=== PATIENT | male | born 1985 | race Caucasian/White ===

== ENCOUNTER 2023-04-17 11:09 | Day surgery (SDC) | payer BC ==
[2023-04-09 14:23] LABS: BASOPHILS # (AUTO) 0.1 X10'3 (0-0.2); BASOPHILS % (AUTO) 0.7 % (0-1); EOSINOPHILS # (AUTO) 0.3 X10'3 (0-0.9); EOSINOPHILS % (AUTO) 3.7 % (0-6); LYMPHOCYTES # (AUTO) 2.8 X10'3 (1.1-4.8); LYMPHOCYTES % (AUTO) 39.2 % (21-51); MEAN CORPUSCULAR HEMOGLOBIN 30.1 PG (27.0-31.0); MEAN CORPUSCULAR HGB CONC 34.5 g/dL (33.0-36.5); MEAN CORPUSCULAR VOLUME 87.4 FL (78-98); MEAN PLATELET VOLUME 7.7 FL (7.4-10.4); MONOCYTES # (AUTO) 0.6 X10'3 (0-0.9); MONOCYTES % (AUTO) 8.4 % (2-12); NEUTROPHILS # (AUTO) 3.4 X10'3 (1.8-7.7); PRE OP HEMATOCRIT 42.3 % (42.0-52.0); PRE OP HEMOGLOBIN 14.6 g/dL (14.0-17.9); PRE OP PLATELET COUNT 282 X10'3 (140-440); PRE OP WHITE BLOOD COUNT 7.2 10'3 (4.8-10.8); RED BLOOD COUNT 4.84 X10'6 (4.70-6.10); RED CELL DISTRIBUTION WIDTH 12.5 % (11.5-14.5)
[2023-04-09 14:24] LABS: BILIRUBIN,URINE NEGATIVE (Neg); CLARITY,URINE CLEAR (Clear); COLOR,URINE YELLOW (Yellow); GLUCOSE, URINE NEGATIVE (Neg); KETONES,URINE NEGATIVE (Neg); LEUKOCYTE ESTERASE ,URINE NEGATIVE (Neg); NITRITES, URINE NEGATIVE (Neg); OCCULT BLOOD,URINE NEGATIVE (Neg); PH,URINE 6.5 (4.8-8.0); PROTEIN,URINE NEGATIVE (Neg); UROBILINOGEN,URINE 0.2 E.U/dL (0.2-1.0)
[2023-04-09 14:29] LABS: UA COLLECTION TYPE CLN CATCH MIDSTREAM
[2023-04-09 14:41] LABS: PRE OP PROTIME 10.3 SECONDS (9.0-12.0)
[2023-04-09 14:43] LABS: ALBUMIN 4.2 G/DL (3.4-5.0); ALBUMIN/GLOBULIN RATIO 1.1 (1.1-1.5); ALKALINE PHOSPHATASE 71 IU/L (46-116); BLOOD UREA NITROGEN 13 MG/DL (7-18); BUN/CREATININE RATIO 13.5 (10.0-20.0); CALCIUM 9.1 MG/DL (8.5-10.1); CHLORIDE 104 MMOL/L (99-107); CREATININE 0.96 MG/DL (0.60-1.10); PRE OP ALT 76 U/L (30-65); PRE OP ANION GAP 10 (8-16); PRE OP AST 26 U/L (10-37); PRE OP BILIRUB, TOTAL 0.5 MG/DL (0.0-1.0); PRE OP GLUCOSE 95 MG/DL (70-104); PRE OP POTASSIUM 3.9 MMOL/L (3.4-5.1); PRE OP SODIUM 143 MMOL/L (135-145); eGFR 89 ML/MIN
[~2023-04-17] VITALS: Ht 182.9 cm; Wt 95.5 kg
[2023-04-17] VITALS (11 sets, daily range): BP systolic 106–133; BP diastolic 61–82; PULSE 75–109; RESP 13–18; TEMP 98.1; O2SAT 94–98
[~2023-04-17 11:09] MED LIST: NO HOME MEDS
[2023-04-17] MEDS: famotidine 20mg tablet PO ONE (11:56)
[2023-04-17] MEDS: tranexamic acid inj. 1,000 MG in normal saline IV soln 100ML IV ONE (11:57)
[2023-04-17] MEDS: ringers solution, lacted 1,000 ML IV SCH (11:57)
[2023-04-17] MEDS: cefazolin 2gm/D5W 100mL 100 ML IV ONE (11:57)
[2023-04-17] MEDS ORDERED: cloNIDine hcl/PF 100mcg/ml inj ONE (13:07)
[2023-04-17] MEDS ORDERED: midazolam 1 mg/ML 2ml injection ONE (13:19)
[2023-04-17] MEDS ORDERED: fentaNYL /PF 50mcg/ml 5ml ampule ONE (13:20)
[2023-04-17] MEDS ORDERED: ringers solution, lacted 1,000 ML IV SCH (14:00)
[2023-04-17] MEDS ORDERED: meperidine/PF 25mg/ml syringe IV PRN ×3 (14:00)
[2023-04-17] MEDS ORDERED: hydrALAZINE 20mg/ml inj. IV PRN (14:00)
[2023-04-17] MEDS ORDERED: labetalol 20mg/4ml (5mg/ml) syringe IV PRN (14:00)
[2023-04-17] MEDS ORDERED: morphine 2 MG/ML inj. syringe IV PRN (14:00)
[2023-04-17] MEDS ORDERED: morphine 4 MG/ML inj SYRINge IV PRN (14:00)
[2023-04-17] MEDS ORDERED: ketorolac trometh. 30mg/ml inj. IV ONE (14:00)
[2023-04-17] MEDS ORDERED: acetaminophen 1,000mg/100ml IV 100 ML IV ONE (14:00)
[2023-04-17] MEDS ORDERED: proCHLORperazine 10 MG/2 ml inj IV PRN (14:00)
[2023-04-17] MEDS ORDERED: ondansetron/PF 4mg/2ml inj IV PRN (14:00)
[2023-04-17] MEDS ORDERED: rocuronium 10mg/ml inj IV ONE (14:03)
[2023-04-17] MEDS ORDERED: ondansetron/PF 4mg/2ml inj ONE (14:03)
[2023-04-17] MEDS ORDERED: dexamethasone sod phosphate 4mg/ml inj. ONE (14:03)
[2023-04-17] MEDS ORDERED: ROPIVAcaine 0.5% (5mg/ml) 30ml vial ONE (14:03)
[2023-04-17] MEDS ORDERED: LIDOcaine 1%/PF 5ML 10 MG/ML VIAL ONE ×2 (14:03)
[2023-04-17] MEDS ORDERED: propofol inj 20 ML IV ONE (14:03)
[2023-04-17] MEDS ORDERED: sevoflurane 250ml liquid IH ONE (14:28)
[2023-04-17] MEDS: vancomycin 1,000mg inj ONE (14:34)
[2023-04-17] MEDS ORDERED: glycopyrrolate 0.2mg/ml inj ONE (16:49)
[2023-04-17] MEDS ORDERED: neostigmine methylsulfate 1 MG/ML 10ml vial ONE (16:49)
== END 2023-04-17 18:17 | disposition home or self-care (01) ==
LOC: PAS 11:09
PROVIDERS: ATTEND Specialist
DX: S52.121S Displaced fracture of head of right radius, sequela (principal); M25.621 Stiffness of right elbow, not elsewhere classified; M24.521 Contracture, right elbow; M13.821 Other specified arthritis, right elbow; G89.18 Other acute postprocedural pain; Z72.89 Other problems related to lifestyle; Z98.890 Other specified postprocedural states; Z98.52 Vasectomy status; Z79.899 Other long term (current) drug therapy; Z79.01 Long term (current) use of anticoagulants; X58.XXXS Exposure to other specified factors, sequela
CPT/HCPCS: 24343; 24366; 36415; 64415; 71045; 73070; 73080; 80053; 81003; 82948; 85025; 85610; 85730; 86885; 86900; 86901; A6222; C1713; C1776; J0690; J0735; J1100; J2250; J2405; J2704; J2710; J2795; J3010; J3370; J3490; J7030; J7120; Z7506; Z7508; Z7512; 76000; A4215; A4565; A4618; A6449; A6455; A7000